=== PATIENT | female | born 1965 | race Caucasian/White ===

== ENCOUNTER → 2016-05-01 | Outpatient (CLI) | payer BC ==
[~2016-05-01] MED LIST: ACET-749 PO; ALPR1TAB3 PO; ANAS1TAB19 PO; ESOM20CA PO; GLC/500 PO; NAPR220T40 PO; PARO20TA4 PO; citrical PO; vitamin c PO
--- NOTE | 2016-05-01 10:39 | DIAGNOSTIC IMAGING REPORT ---
LEFT HAND 3 VIEWS CLINICAL HISTORY: Left hand pain. Positive JYOTSNA. FINDINGS: 3 views of left hand are compared to study dated 10/27/2015. The skeletal structures are well mineralized. No fracture is seen. The joint spaces of the hand are well-maintained. No erosive change is suspected. The overlying soft tissues are within normal limits. IMPRESSION: Unremarkable radiographic assessment of the left hand. No significant change from 10/27/2015. Electronically signed by: Mauro Temple M.D. 05/01/2016 10:37 AM Dictated Date/Time: 05/01/2016 10:37 AM
[2016-05-01 11:47] LABS: BASO % 0.5 %; BASO ABS # 0.02 K/uL (0-0.2); COMPLETE YES; EOS % 2.6 %; HEMATOCRIT 37.3 % (37-47); IG% 0.3 %; LYMPH % 39.5 %; LYMPH ABS # 1.55 K/uL (1.2-3.4); MEAN CELL VOLUME 88.2 fL (80-100); MEAN CORPUSCULAR HEMOGLOBIN 29.3 pg (25-34); MEAN CORPUSCULAR HGB CONC 33.2 g/dl (32-36); MEAN PLATELET VOLUME 9.7 fL (7.4-10.4); NEUT % 46.1 %; PLATELET COUNT 395 K/uL (130-400); RED BLOOD COUNT 4.23 M/uL (4.2-5.4); WHITE BLOOD COUNT 3.92 K/uL (4.8-10.8)
[2016-05-01 11:53] LABS: CREATININE 0.85 mg/dl (0.60-1.20)
[2016-05-01 11:54] LABS: ALT/SGPT 30 U/L (12-78)
[2016-05-01 11:56] LABS: ALKALINE PHOSPHATASE 108 U/L (45-117); AST/SGOT 27 U/L (15-37); RHEUMATOID FACTOR < 10.0 U/mL (0-15)
[2016-05-07 02:47] LABS: ALBUMIN 4.2 G/DL (3.8-4.8); ANTI-CENTROMERE AB <1.0 NEG AI (<1.0 NEG); ANTI-SS-A <1.0 NEG AI (<1.0 NEG); ANTI-SS-B <1.0 NEG AI (<1.0 NEG); CYCLIC CITRULLINATED PEPT IGG <16 UNITS (<20); DNA ds CRITHIDIA POSITIVE (NEGATIVE); GAMMA GLOBULIN 1.1 G/DL (0.8-1.7); Sm Antibody <1.0 NEG AI (<1.0 NEG); TOTAL PROTEIN 7.3 G/DL (6.2-8.3)
== END | disposition home or self-care (01) ==
LOC: C.RAD1850 10:04
PROVIDERS: ATTEND Internal Medicine Rheumatology
DX: M06.4 Inflammatory polyarthropathy (principal); R76.8 Other specified abnormal immunological findings in serum; Z79.1 Long term (current) use of non-steroidal anti-inflammatories (NSAID); Z79.899 Other long term (current) drug therapy

== ENCOUNTER 2018-10-09 10:25 | Inpatient (IN) ==
--- OUTSIDE RECORDS SUMMARY | 2018-10-09 10:29 | External Medical Summary | Continuity of Care Document ---
:1965 Author Name Keven Kathleen, Provider Address Unavailable Unavailable , Care Team Providers Name Role Phone Eloise Kathleen, [email or web address] Maile Kathleen, Provider Unavailable [email or web address] Stacey Reyes M.D. Unavailable [email or web address] Scott ALFRED, Lorri Unavailable [email or web address] CRYSTAL SALAZAR M.D., HILLARY Ochoa Unavailable Un available Unavailable Unavailable Unavailable Problems Menopausal symptoms (627.2) (N95.1) History of malignant neoplasm of breast (V10.3) (Z85.3) Status: Resolved Appendicitis (541) (K37) Gastrointestinal tract imaging abnormality (793.4) (R93.3) Acute appendicitis (540.9) (K35.80) Diarrhea (787.91) (R19.7) Appendix disease (543.9) (K38.9) Rheumatoid arthritis (714.0) (M06.9) Fatigue (780.79) (R53.83) Neck strain (847.0) (S16.1XXA) Arthralgia of multiple sites (719.49) (M25.50) Folliculitis (704.8) (L73.9) Prediabetes (790.29) (R73.03) High risk medication use (V58.69) (Z79.899) S/P mastectomy, bilateral (V45.71) (Z90.13) H/O: hysterectomy (V88.01) (Z90.710) Encounter for gynecological examination without abnormal finding (V72.31) (Z01.419) Long-term use of hydroxychloroquine (V58.69) (Z79.899) JYOTSNA positive (795.79) (R76.8) Positive double stranded DNA antibody test (795.79) (R76.8) Undifferentiated connective tissue disease (710.9) (M35.9) NSAID long-term use (V58.64) (Z79.1) Inflammatory polyarthritis (714.9) (M06.4) Granuloma annulare (695.89) (L92.0) History of abnormal Pap smear (V13.29) (Z87.898) Status: Resolved Acid reflux (530.81) (K21.9) Anxiety (300.00) (F41.9) Encounter for screening for lipoid disorders (V77.91) (Z13.2 20) Actinic keratosis (702.0) (L57.0) Allergies and Adverse Reactions Heparin (Allergy) Sulfa Drugs (Allergy) Adhesive Tape (Allergy) Fish (Allergy) Medications Cephalexin 500 MG Oral Capsule; TAKE 1 CAPSULE 3 TIMES DAILY. AUBRIE Chavez Start: 04-Jan-2018 Quantity: 15 Refills: 0 Folic Acid 1 MG Oral Tablet; take 1 tablet by mouth once sonali ly Start: 16-Nov-2016 Quantity: 90 Refills: 3 Vitamin D TABS Refills: 0 Hydroxychloroquine Sulfate 200 MG Oral Tablet; TAKE 1 TABLET TWICE DAILY. Frannie Jackson Start: 25-Nov-2015 Quantity: 180 Refills: 1 Leucovorin Calcium 5 MG Oral Tablet; TAKE 1 TABLET ONCE WEEK LY Start: 22-Sep-2016 Refills: 0 Omeprazole 20 MG Oral Tablet Delayed Release; Take 1/2 tablet daily Dar Salazar M.D. Start: 16-Nov-2016 Quantity: 28 Ralitsa Refills: 5 Meloxicam 15 MG Oral Tablet; TAKE ONE(1) TABLET BY MOUTH DAILY WITH FOOD Frannie Navas Start: 27-Oct-2015 Refills: 0 Ralitsa Paxil 20 MG Oral Tablet; TAKE 1 TABLET DAILY. Start: 12-Nov-2014 Quantity: 90 Refills: 3 ALPRAZolam 1 MG Oral Tablet; Take one half tablet daily for sleep Start: 12-Nov-2014 Refills: 0 Methotrexate Sodium (PF) 50 MG/2ML Injection Solution; Inject 0.8ML SubQ weekly Start: 22-Sep-2016 Refills: 0 Exemestane 25 MG Oral Tablet; TAKE 1 TABLET DAILY AFTER A ME AL. Start: 22-Sep-2016 Refills: 0 Procedures History of Colposcopy Status: Completed History of Oral Surgery Tooth Extraction Status: Completed History of Anal Fissurectomy Status: Com pleted 20-Feb-1984 0:00 History of Dilation And Curettage Status : Completed History of Breast Surgery Radical Mastectomy Status: Completed History of Cervical Conization Loop Electrode Status: Completed 19-Feb-1994 0:00 Excision History of Counseling for initiation of Status: Completed control method History of Salpingo-oophorectomy Bilat Laparosc Status: Completed Removal Of Both Ovaries & Tubes Immunizations Influenza On: 24-Jan-2011 17:34 Lot #: [id number], SANOFI PASTEUR Tdap (Adacel) 1 On: 08-Mar-2011 9:12 Lot #: [id number], SANOFI PASTEUR Influenza On: 21-Nov-2011 16:09 Lot #: [id number], SANOFI PASTEUR Influenza On: 25-Nov-2012 Influenza On: Nov-2013 Influenza On: 12-Nov-2014 16:13 Lot #: [id number], SANOFI PASTEUR Influenza On: 25-Nov-2016 Family History Mother Family history of Breast Cancer (V16.3) Status: Active Family history of Diabetes Mellitus (V18.0) Status: Active Family history of Hypertension (V17.49) Status: Active Family history of Hyperlipidemia Status: Active Father Family history of Atrial Fibrillation Status: Active Family history of Hyperlipidemia Status: Active Family history of Congestive Heart Failure Status: Active Family history of Diabetes Mellitus (V18.0) Status: Active Unknown Family Member Family history of Breast Cancer (V16.3) Status: Active Comments: Family History Social History - Smoking Status Never smoker Plan of Treatment Planned Observations Planned Goals not documented Results No Known Results Results not documented Encounters Appointment; Lorri Chavez PA-C 04-Jan-2018 15:00 Encounter Diagnosis: Problem not documented Appointment; Lorir Chavez PA-C 27-Dec-2017 15:30 Encounter Diagnosis: Problem not documented Appointment; Hugo Fofana DO 20-Jul-2017 9:30 Encounter Diagnosis: Problem not documented Appointment; Hillary Navas M.D. 14:40 Encounter Diagnosis: Problem not documented Appointment; Hillary Navas, M.D. 8 10:20 Encounter Diagnosis: Problem not documented Appointment; Hillary Navas M.D. 7 10:40 Encounter Diagnosis: Problem not documented
[2018-10-09] MEDS ORDERED: SODIUM CHLORIDE 0.9% 1000ML 2,000 ML IV ONE (10:54)
[2018-10-09] MEDS ORDERED: ACETAMINOPHEN 1,000 MG/100 ML VIAL IV STA (10:57)
[2018-10-09] MEDS ORDERED: ONDANSETRON INJ 2 MG/ML 2 ML VIAL IV STA (10:57)
[2018-10-09 11:21] LABS: Basophils # (auto) 0.02 K/uL (0-0.2); Basophils % (auto) 0.2 %; Eosinophils # (auto) 0.06 K/uL (0-0.5); Eosinophils % (auto) 0.5 %; Hematocrit (blood only) 38.5 % (37-47); Hemoglobin 12.9 g/dL (12.0-16.0); Immature Granulocytes # (auto) 0.03 K/uL (0.00-0.02); Immature Granulocytes % (auto) 0.3 %; Lymphocytes # (auto) 0.91 K/uL (1.2-3.4); Lymphocytes % (auto) 7.7 %; Mean Corpuscular Hemoglobin 30.4 pg (25-34); Mean Corpuscular Hgb Conc 33.5 g/dL (32-36); Mean Corpuscular Volume 90.8 fL (80-100); Mean Platelet Volume 9.7 fL (7.4-10.4); Monocytes % (auto) 5.9 %; Neutrophils # (auto) 10.07 K/uL (1.4-6.5); Neutrophils % (auto) 85.4 %; Platelet Count 316 K/uL (130-400); RDW Coefficient of Variation 17.3 % (11.5-14.5); RDW Standard Deviation 57.1 fL (36.4-46.3); Red Blood Count 4.24 M/uL (4.2-5.4); White Blood Count 11.79 K/uL (4.8-10.8)
[2018-10-09 11:30] LABS: Albumin Level 3.7 gm/dl (3.4-5.0); Calcium 9.5 mg/dl (8.5-10.1); Creatinine Clr Calc Pharmacy 71.3 ml/min; Est GFR (African American) 76.9; Est GFR (Non-African American) 66.3; Potassium 4.1 mmol/L (3.5-5.1)
[2018-10-09 11:33] LABS: Albumin Globulin Ratio 0.9 (0.9-2); Bilirubin,Total 0.9 mg/dl (0.2-1); Globulin 4.1 gm/dl (2.5-4.0); Total Protein 7.8 gm/dl (6.4-8.2)
[2018-10-09] MEDS ORDERED: IOVERSOL 100ml IV PRN (11:47)
--- NOTE | 2018-10-09 12:10 | CT Scan Report ---
ABDOMEN AND PELVIS CT WITH IV CONTRAST CT DOSE: 730.94 mGy.cm HISTORY: Acute right lower quadrant abdominal pain right lower quadrant pain TECHNIQUE: Multiaxial CT images of the abdomen and pelvis were performed following the use of intrave nous contrast. A dose lowering technique was utilized adhering to the principles of ALARA. COMPARISON STUDY: CT abdomen and pelvis 07/18/2017 FINDINGS: There is mild dependent subsegmental bibasilar atelectasis. Additional patchy groundglass opacities o f the left greater than right lung bases are noted. No pneumatosis or pneumoperitoneum. The imaged in ferior cardiac chambers appear unremarkable. The spleen, pancreas, adrenal glands, gallbladder and li moises appear unremarkable. Patency of the hepatic and portal veins. Kidneys, and ureters appear unremar kable. Partial distention the bladder with mild wall thickening. Retroflexed uterus appears to be uni cornuate in morphology. No adnexal mass lesions. Retroaortic left renal vein. No adenopathy by CT siz e criteria. Wall thickening of the distal esophagus with moderate hiatal hernia. No bowel obstruction. Terminal i leum is unremarkable. There is circumferential wall thickening with dilation of the appendix measurin g up to 11 mm transversely. Mucosal hyperemia is noted with mild periappendiceal inflammatory strandi ng. No evidence of perforation or drainable fluid collection. Tiny fat filled periumbilical hernia, 1 .4 cm. Bilateral breast implants are partially imaged. Severe L5-S1 facet arthrosis. Bones appear to be intact. IMPRESSION: 1. Dilated appendix demonstrates circumferential wall thickening and mucosal hyperemia with mild lindsay appendiceal inflammatory stranding. These findings are [facility] Please note however that on study from 07/18/2017 the appendix appeared simil norbert. 2. No evidence of perforation or drainable fluid collection. 3. No bowel obstruction. 4. Moderate hiatal hernia. 5. Tiny fat filled periumbilical hernia. 6. Additional findings as above. Electronically signed by: Tyrese Bourgeois M.D. 10/09/2018 12:08 PM
[2018-10-09] MEDS ORDERED: cefOXitin 2,000 MG/60 ML BAG IV STA (12:30)
[2018-10-09 12:52] LABS: Appearance Urine Clear (Clear); Bacteria Urine Automated Negative (Negative); Bilirubin Urine Negative (Negative); Blood Urine Negative (Negative); Color Urine Yellow; Glucose Urine UA Negative (Negative); Ketones Urine Negative (Negative); Leukocyte Esterase Urine 1+ (Negative); Nitrite Urine Negative (Negative); Protein Urine Negative (Negative); RBC Urine Automated 0-4 /hpf (0-4); Specific Gravity Urine 1.022 (1.000-1.030); Urobilinogen Urine Negative (Negative); pH Urine 7.5 (4.5-7.5)
--- NOTE | 2018-10-09 13:20 | Surgery Consultation ---
Date of Consultation October 09, 2018 Assessment & Plan (1) Acute appendicitis: This is a 53y F who presents with CT findings and physical exam concerning for acute appendicitis. Although patient's CT scan showed similar appendiceal findings in 06/2017, the patient now exhibits tenderness in the RLQ and overall feeling unwell. We will plan to take the patient to the OR today. Continue pre- op abx, NPO, and IVF. Patient is aware that this surgical procedure may delay her implant removal next week and is planning to call her surgeon from [facility] to inform them of this. We will admit her in observation overnight for ongoing monitoring. Dr Parekh- saw pt in ER Feel best to proceed with laparoscopic appendectomy possible open operation History of Present Illness Reason for Consultation: right lower quadrant abdominal pain concerning for appendicitis History of Present Illness This is a 53yF with a PMH of breast cancer dx in 2011 who presents to the [facility] ED on 10/09/18 with complaints of right sided abdominal pain. The patient states she developed abdominal gas pains and diarrhea on Sunday that progressed to right lower quadrant pain on Sunday and Sunday. Today she woke up with whole body achiness, low grade fever, chills, and overall feeling unwell. A CT scan was performed revealing a dilated appendix with wall thickening and some periappendiceal inflammatory stranding. Interestingly, she had a CT scan last year for an elective surgery where incidentally similar findings of appendicitis where found. She was called to the ER for these findings and since she was asymptomatic patient was sent home and completed a course of abx. Currently the patient denies nausea/vomiting and shortness of breath. The patient also states that she is scheduled for bilateral breast implant removal next week with [facility]. Allergies Allergy/AdvReac Type Severity Reaction Status Date / Time adhesive Allergy Intermediate RED PUFFY Verified 10/09/18 11:11 SKIN fentanyl Allergy Intermediate "FELT Verified 10/09/18 11:11 FUNNY IN THE HEAD"-RASH AFTER FENTANYL AND VERSED midazolam Allergy Intermediate RASH AFTER Verified 10/09/18 11:11 FENTANYL AND VERSED Sulfa (Sulfonamide Allergy Intermediate HIVES Verified 10/09/18 11:11 Antibiotics) heparin Allergy Mild HIVES Verified 10/09/18 11:11 salmon oil Allergy Mild HIVES/ Verified 10/09/18 11:11 VOMITING Home Medications Home Medications Medication Instructions Recorded Confirmed Type paroxetine HCl [Paxil] 20 mg PO DAILY #0 tab 06/09/14 10/09/18 History alprazolam 0.5 mg PO HS PRN #0 tab 07/18/17 10/09/18 History cholecalciferol (vitamin D3) 1,000 unit PO DAILY 90 Days #0 tab 07/18/17 10/09/18 History exemestane [Aromasin] 25 mg PO DAILY #0 tab 07/18/17 10/09/18 History folic acid 1 mg PO DAILY #0 tab 07/18/17 10/09/18 History hydroxychloroquine 200 mg PO BID #0 tab 07/18/17 10/09/18 History leucovorin calcium 5 mg PO WK #0 tab 07/18/17 10/09/18 History meloxicam 15 mg PO DAILY #0 07/18/17 10/09/18 History methotrexate sodium 20 mg IM WK #0 07/18/17 10/09/18 History omeprazole magnesium [Prilosec OTC] 20 mg PO HS #0 cap 07/18/17 10/09/18 History cyanocobalamin (vitamin B-12) 1,000 mcg IM MONTHLY 10/09/18 10/09/18 History Patient History Medical History Appendicitis Breast cancer Social History Feels Safe at Home: Yes Smoking Status: Never smoker Review of Systems Constitutional: + fever (low grade 99F), + chills and + body aches Gastrointestinal: + abdominal pain (right lower quadrant) and + diarrhea/loose stools; no nausea and no vomiting Physical Exam Constitutional: well developed, well nourished, + ill appearing and cooperative; no acute distress Respiratory: normal respiratory effort Cardiovascular: Rate/Rhythm: regular rate and regular rhythm Gastrointestinal (Abdomen): Percussion/Palpation: + abdomen tender (to palpation of the right lower quadrant) and abdomen soft Results & Data Vital Signs (Past 12 Hours) Vital Signs Temp Pulse Pulse Resp BP BP Pulse Ox 10/09/18 12:30 95 H 18 123/82 96 10/09/18 11:14 95 H 17 126/95 93 10/09/18 10:31 37.5 C 124 H 20 126/87 [address] WITH IV CONTRAST CT DOSE: 730.94 mGy.cm HISTORY: Acute right lower quadrant abdominal pain right lower quadrant pain TECHNIQUE: Multiaxial CT images of the abdomen and pelvis were performed following the use of intravenous contrast. A dose lowering technique was utilized adhering to the principles of ALARA. COMPARISON STUDY: CT abdomen and pelvis 07/18/2017 FINDINGS: There is mild dependent subsegmental bibasilar atelectasis. Additional patchy groundglass opacities of the left greater than right lung bases are noted. No pneumatosis or pneumoperitoneum. The imaged inferior cardiac chambers appear unremarkable. The spleen, pancreas, adrenal glands, gallbladder and liver appear unremarkable. Patency of the hepatic and portal veins. Kidneys, and ureters appear unremarkable. Partial distention the bladder with mild wall thickening. 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 No adnexal mass lesions. Retroaortic left renal vein. No adenopathy by CT size criteria. Wall thickening of the distal esophagus with moderate hiatal hernia. No bowel obstruction. Terminal ileum is unremarkable. There is circumferential wall thickening with dilation of the appendix measuring up to 11 mm transversely. Mucosal hyperemia is noted with mild periappendiceal inflammatory stranding. No evidence of perforation or drainable fluid collection. Tiny fat filled periumbilical hernia, 1.4 cm. Bilateral breast implants are partially imaged. Severe L5-S1 facet arthrosis. Bones appear to be intact. IMPRESSION: 1. Dilated appendix demonstrates circumferential wall thickening and mucosal hyperemia with mild periappendiceal inflammatory stranding. These findings are suspicious for acute appendicitis in the appropriate clinical setting. Please note however that on study from 07/18/2017 the appendix appeared similarly. 2. No evidence of perforation or drainable fluid collection. 3. No bowel obstruction. 4. Moderate hiatal hernia. 5. Tiny fat filled periumbilical hernia. 6. Additional findings as above. Electronically signed by: Tyrese Bourgeois M.D. 10/09/2018 12:08 PM PG Care Time/CCT Total # of Minutes Spent Total Time Spent with Patient: Total time spent is greater than 50% in coordination of care (as documented) at patient's floor/unit and/or counseling patient:
[2018-10-09] MEDS ORDERED: BUPIVACAINE 0.5 % 5 MG/1 ML MPF 30ML VIAL ONE (13:30)
[2018-10-09] MEDS ORDERED: PROPOFOL IV EMULSION 10 MG/ML 20 ML VIAL IV ONE (13:31)
[2018-10-09] MEDS ORDERED: LIDOCAINE HCL 2% 2 ML VIAL/AMP(20MG/ML) INFIL ONE (13:31)
[2018-10-09] MEDS ORDERED: GLYCOPYRROLATE 0.2 MG/ML VIAL ONE ×2 (13:31→14:55)
[2018-10-09] MEDS ORDERED: LARYING-O-JET KIT (LTA) ONE (13:31)
[2018-10-09] MEDS ORDERED: ONDANSETRON INJ 2 MG/ML 2 ML VIAL ONE (13:31)
[2018-10-09] MEDS ORDERED: SODIUM CHLORIDE 0.9% INJ 10 ML VIAL ONE (13:31)
[2018-10-09] MEDS ORDERED: DEXAMETHASONE SOD INJ 4 MG/ML VIAL ONE (13:31)
[2018-10-09] MEDS ORDERED: NEOSTIGMINE METHYLSULFATE 5 MG/5 ML SYR ONE (13:31)
[2018-10-09] MEDS ORDERED: HYDROmorphone INJ 2 MG/ML SYR/VIAL ONE (13:32)
[2018-10-09] MEDS ORDERED: ONDANSETRON INJ 2 MG/ML 2 ML VIAL IV PRN ×2 (14:03→16:57)
[2018-10-09] MEDS ORDERED: PROMETHAZINE HCL 6.25 MG in SODIUM CHLORIDE 0.9% 50 ML IV PRN (14:03)
[2018-10-09] MEDS ORDERED: ATROPINE SULFATE 0.1 MG/ML 10ML SYR IV PRN (14:03)
[2018-10-09] MEDS ORDERED: ePHEDrine sulfate 50 MG/ML AMP IV PRN (14:03)
[2018-10-09] MEDS ORDERED: fentaNYL citrate 100 MCG/2 ML VIAL IV PRN (14:03)
[2018-10-09] MEDS ORDERED: HYDROmorphone INJ 2 MG/ML SYR/VIAL IV PRN (14:03)
--- NOTE | 2018-10-09 14:03 | Anesthesiology Consultation ---
Date of Service October 09, 2018 Breast Cancer Rheumatoid Arthritis Assessment & Plan (1) Encounter for pre-operative examination: Chart Review Chart Review: Acceptable Risk for Surgery and Patient NOT seen in Pre Admission Testing Consults Requested none ASA [id number] Proposed Anesthesia Anesthesia Type: General Risk / Benefits Reviewed With: PT / POA / Parent / Guardian, Accepts Plan and Informed Consent Obtained History Surgery Operation Date: 10/09/18 07:30 Proposed Procedures p Laparoscopic Appendectomy - Alex Parekh MD, FACS Height/Weight Height: 5 ft 4 in Weight: 86 kg Allergies Allergy/AdvReac Type Severity Reaction Status Date / Time adhesive Allergy Intermediate RED PUFFY Verified 10/09/18 11:11 SKIN fentanyl Allergy Intermediate "FELT Verified 10/09/18 11:11 FUNNY IN THE HEAD"-RASH AFTER FENTANYL AND VERSED midazolam Allergy Intermediate RASH AFTER Verified 10/09/18 11:11 FENTANYL AND VERSED Sulfa (Sulfonamide Allergy Intermediate HIVES Verified 10/09/18 11:11 Antibiotics) heparin Allergy Mild HIVES Verified 10/09/18 11:11 salmon oil Allergy Mild HIVES/ Verified 10/09/18 11:11 VOMITING Medications Home Medications Medication Instructions Recorded Confirmed Last Taken paroxetine HCl [Paxil] 20 mg PO DAILY #0 tab 06/09/14 10/09/18 10/09/18 alprazolam 0.5 mg PO HS PRN #0 tab 07/18/17 10/09/18 Unknown cholecalciferol (vitamin D3) 1,000 unit PO DAILY 90 Days #0 tab 07/18/17 10/09/18 10/08/18 exemestane [Aromasin] 25 mg PO DAILY #0 tab 07/18/17 10/09/18 10/08/18 folic acid 1 mg PO DAILY #0 tab 07/18/17 10/09/18 10/08/18 hydroxychloroquine 200 mg PO BID #0 tab 07/18/17 10/09/18 10/09/18 leucovorin calcium 5 mg PO WK #0 tab 07/18/17 10/09/18 10/09/18 meloxicam 15 mg PO DAILY #0 07/18/17 10/09/18 10/09/18 methotrexate sodium 20 mg IM WK #0 07/18/17 10/09/18 10/09/18 omeprazole magnesium [Prilosec OTC] 20 mg PO HS #0 cap 07/18/17 10/09/18 10/08/18 cyanocobalamin (vitamin B-12) 1,000 mcg IM MONTHLY 10/09/18 10/09/18 Unknown Active Medications Generic Name Dose Route Start Last Admin Trade Name Freq PRN Reason Stop Dose Admin Ioversol 95 ml 10/09/18 11:47 10/09/18 11:47 Optiray 320 100ml IV 10/13/18 11:46 95 ml ONCE PRN Administration Interaction Checking NPO Date Last Intake of Fluids: 10/09/18 Time Last Intake of Fluids: 08:30 Date Last Intake of Solids: 10/09/18 Time Last Intake of Solids: 08:30 Past Medical History Medical History Appendicitis Breast cancer Exercise / Class Metabolic Activity II 4-5 Yardwork/Stairs/Walk up hill Past Anesthesia History No Hx of Anesthesia Complications and No Family Hx of Anesthesia Complications History of PONV No Hx of PONV and No Hx of Motion Sickness Social History Smoking Status: Never smoker Physical Exam Vital Signs Last Vital Signs Temp 37 C 10/09/18 13:51 Pulse 89 10/09/18 13:51 Resp 18 10/09/18 13:51 BP 141/97 H 10/09/18 13:51 Pulse Ox 97 10/09/18 13:51 ENMT Mouth: no dentition abnormality Thyromental Distance: > or= 3.5 Finger Breadths Mallampati Class: II Neck normal visual inspection Respiratory normal respiratory effort Auscultation: lungs clear to auscultation bilaterally Cardiovascular Rate/Rhythm: regular rate and regular rhythm Psychiatric Orientation: alert Testing Laboratory Results 10/09/18 10:50 10/09/18 10:50 Urine Color Yellow 10/09/18 12:30 Urine Appearance Clear (Clear) 10/09/18 12:30 Urine pH 7.5 (4.5-7.5) 10/09/18 12:30 Ur Specific [place] 1.022 (1.000-1.030) 10/09/18 12:30 Urine Protein Negative (Negative) 10/09/18 12:30 Urine Glucose (UA) Negative (Negative) 10/09/18 12:30 Urine Ketones Negative (Negative) 10/09/18 12:30 Urine Nitrite Negative (Negative) 10/09/18 12:30 Ur Leukocyte Esterase 1+ (Negative) H 10/09/18 12:30 Urine WBC (Auto) 1-5 /hpf (0-5) 10/09/18 12:30 Urine RBC (Auto) 0-4 /hpf (0-4) 10/09/18 12:30 U Hyaline Cast (Auto) 1-5 /lpf (0-5) 10/09/18 12:30 U Epithel Cells (Auto) 5-10 /lpf (0-5) H 10/09/18 12:30 Urine Bacteria (Auto) Negative (Negative) 10/09/18 12:30
[2018-10-09] MEDS ORDERED: ROCURONIUM BROMIDE 10 MG/ML 5 ML VIAL ONE (14:23)
[2018-10-09] MEDS ORDERED: KETOROLAC 30 MG/ML VIAL ONE (14:23)
[2018-10-09] MEDS ORDERED: SUCCINYLCHOLINE CHLORIDE 20 MG/ML 10 ML VIAL ONE (14:23)
[2018-10-09] MEDS ORDERED: ePHEDrine sulfate 50 MG/ML SYR ONE (14:38)
--- NOTE | 2018-10-09 15:04 | Operative Report ---
Post Operative Report Pre & Post Diagnosis Operation Date: 10/09/18 07:30 Pre-Op Diagnosis: Acute Appendicitis Post-Op Diagnosis: Acute Appendicitis adhesions Procedure Operation Date: 10/09/18 07:30 Actual Procedures p Laparoscopic Appendectomy(Not Applicable) - Alex Parekh MD, FACS lysis of adhesions Surgeon Alex Parekh MD, FACS Lumber Press Operator Sara Taylor Estimated Blood Loss 10 Findings Consistent with Post-Op Diagnosis Specimens appendix Description of Procedure see dictation I attest to the content of the Intraoperative Record and any orders documented therein. Any exceptions are noted below.
[2018-10-09] MEDS ORDERED: SUGAMMADEX SODIUM 200 MG/2 ML VIAL IV ONE (15:20)
[2018-10-09] MEDS ORDERED: MEPERIDINE HCL 25 MG/ML CARP ONE (15:31)
[2018-10-09] MEDS ORDERED: MEPERIDINE HCL 25 MG/ML CARP IV PRN (15:32)
[2018-10-09] MEDS ORDERED: RACEPINEPHRINE 2.25% NEBU SOLN 0.5 ML VIAL NEB STA (15:55)
--- NOTE | 2018-10-09 16:10 | Anesthesiology Progress Note ---
Date of Service October 09, 2018 Subjective Emergence Note (Difficult to read on paper flow sheet/Anesthetic record): After patient reversed from paralytic but before surgery completed, patient was ventilating with Vt 400s, RR 14-16, nonlabored. Patient's TOF was also 4/[address] on ulnar nerve. Patient also noted to have some orbital edema, Dr. Sharma made aware and is thought to be due to 2L of NSS given in ER then patient was laid flat for surgery. No swelling elsewhere or hives noted. When surgery finished and patient more awake, RR increased to 30s, VT dropped to 200-300s. Patient already give max amount of reversal agent. Dr. Sharma made aware and came into room, Sugammadex requested. Dr. Sharma felt patient was ok to be extubated and ETT was pulled. Patient's VSS but Spo2 began to drop into low 90s. Patient did report it being difficult to breathe, RR 30s. Another [employer] sent to retrieve Sugammadex and it was given. Within 1-2 minutes, RR dropped to 16-20, Vt over 400s and patient reported "feeling better". Spo2 also up to 98%. Patient then began to shiver but awake entire time. In PACU requested Demerol order for patient comfort. Patients VSS in PACU but did occasionally have a cough that sounded stridorous. Lung sounds were clear throughout, Patient did not have any oral edema, hives or wheezing to accompany the occasional stridorous cough. Patient also denied having any pain or dyspnea. Edith made aware of all the above and ordered a Nebulizer of racemic epinephrine which was promptly given in PACU. Upon leaving patient in PACU, VSS. The patient was resting comfortably. There was no shivering, stridorous cough, dyspnea, or distress noted. Physical Exam Vital Signs: Last Vital Signs Temp 36.8 C 10/09/18 15:30 Pulse 100 H 10/09/18 15:47 Resp 26 H 10/09/18 15:47 BP 150/101 H 10/09/18 15:30 Pulse Ox 96 10/09/18 15:47 Results & Data Medications Administered Epinephrine (Raccemic Epinephrine 2.25% 0.5ml) 0.5 ml NEB NOW STA Stop: 10/09/18 15:56 Last Admin: 10/09/18 15:56 Dose: 0.5 ml Documented by: Ioversol (Optiray 320 100ml) 95 ml IV ONCE PRN PRN Reason: Interaction Checking Stop: 10/13/18 11:46 Last Admin: 10/09/18 11:47 Dose: 95 ml Documented by: [id number] Meperidine HCl (Demerol) 12.5 mg IV ONCE PRN PRN Reason: Pain Stop: 10/23/18 15:31 Last Admin: 10/09/18 15:40 Dose: 12.5 mg Documented by: [id number]
--- NOTE | 2018-10-09 16:22 | Anesthesiology Progress Note ---
Date of Service October 09, 2018 Anesthesia Post Procedure Vital Signs Vital Signs: Temp Pulse Pulse Resp BP BP Pulse Ox 10/09/18 16:10 96 H 21 124/86 93 10/09/18 16:00 99 H 17 110/59 L 91 10/09/18 15:50 105 H 25 H 151/91 H 96 10/09/18 15:47 100 H 26 H 96 10/09/18 15:40 114 H 21 152/113 H 95 10/09/18 15:30 36.8 C 112 H 25 H 150/101 H 94 10/09/18 13:51 37 C 89 18 141/97 H 97 10/09/18 13:28 86 20 143/91 H 98 10/09/18 12:30 95 H 18 123/82 96 10/09/18 11:14 95 H 17 126/95 93 10/09/18 10:31 37.5 C 124 H 20 126/87 96 Pain Intensity Abdomen: Pain Intensity: 7 Transfer of Care Handoff Completed per policy Notes Mental Status: alert / awake / arousable Patient Amnestic to Procedure: Yes Nausea / Vomiting: adequately controlled Pain: adequately controlled Airway Patency, RR, SpO2: stable & adequate BP & HR: stable & adequate Hydration State: stable & adequate Anesthetic Complications: no major complications apparent Notes: Patient did receive a tx with racemic epinephrine in pacu for stridor. She had some mild facial edema which improved with positioning HOB elevated.
--- NOTE | 2018-10-09 16:34 | Hospitalist Consultation ---
Date of Consultation October 09, 2018 Assessment & Plan (1) Appendicitis: s/p appendectomy management per Dr. Parekh (2) GERD (gastroesophageal reflux disease): continue PPI (3) Breast cancer: continue Aromasin (4) Stridor: will place on continuous pulse oximetry over night no stridor on exam at time of my consult, she had some earlier there was a question of possible aspiration after extubation will see how she is breathing in morning, consider CXR if still on oxygen History of Present Illness Reason for Consultation: Medical management Requesting Physician: Dr. Parekh Attending Physician: Alex Parekh MD, [facility] History of Present Illness 53 yo female with history of breast cancer, RA, Lupus and GERD who presents with acute onset of RLQ. She was diagnosed with acute appendicitis on CT scan. WBC was minimally elevated. BMP was normal. She underwent lap appy by Dr. Parekh as well as lysis of adhesions. No complications during surgery. Shortly after extubation she coughed a lot and had some stridor on exam. She was given a dose of racemic epinephrine which improved the stridor. In the PACU she was resting comfortably, no respiratory distress. She denied any abdominal pain, she denies chest pain and dyspnea. She admitted that her throat felt a little swollen. She says that her breast cancer was diagnosed years ago, treated with bilateral mastectomy and she also underwent bilateral oopherectomy. She still takes Aromasin. Her cancer was HER-2 positive and she was treated with Herceptin for a year, never had any cardiomyopathy. She also has a diagnosis of auto-immune disease. She says it has some characteristics of both RA and lupus. She takes Methotrexate, hydroxychloroquine and Leucovorin for this. Her symptoms are well controlled. She does not smoke. She does admit to drinking 3-4 glasses of wine every night. She has gone several days without drinking before, never had issues. Allergies Allergy/AdvReac Type Severity Reaction Status Date / Time adhesive Allergy Intermediate RED PUFFY Verified 10/09/18 11:11 SKIN fentanyl Allergy Intermediate "FELT Verified 10/09/18 11:11 FUNNY IN THE HEAD"-RASH AFTER FENTANYL AND VERSED midazolam Allergy Intermediate RASH AFTER Verified 10/09/18 11:11 FENTANYL AND VERSED Sulfa (Sulfonamide Allergy Intermediate HIVES Verified 10/09/18 11:11 Antibiotics) heparin Allergy Mild HIVES Verified 10/09/18 11:11 salmon oil Allergy Mild HIVES/ Verified 10/09/18 11:11 VOMITING Home Medications Home Medications Medication Instructions Recorded Confirmed Type paroxetine HCl [Paxil] 20 mg PO DAILY #0 tab 06/09/14 10/09/18 History alprazolam 0.5 mg PO HS PRN #0 tab 07/18/17 10/09/18 History cholecalciferol (vitamin D3) 1,000 unit PO DAILY 90 Days #0 tab 07/18/17 10/09/18 History exemestane [Aromasin] 25 mg PO DAILY #0 tab 07/18/17 10/09/18 History folic acid 1 mg PO DAILY #0 tab 07/18/17 10/09/18 History hydroxychloroquine 200 mg PO BID #0 tab 07/18/17 10/09/18 History leucovorin calcium 5 mg PO WK #0 tab 07/18/17 10/09/18 History meloxicam 15 mg PO DAILY #0 07/18/17 10/09/18 History methotrexate sodium 20 mg IM WK #0 07/18/17 10/09/18 History omeprazole magnesium [Prilosec OTC] 20 mg PO HS #0 cap 07/18/17 10/09/18 History cyanocobalamin (vitamin B-12) 1,000 mcg IM MONTHLY 10/09/18 10/09/18 History Patient History Medical History Appendicitis Breast cancer GERD (gastroesophageal reflux disease) Lupus RA (rheumatoid arthritis) Surgical History H/O bilateral oophorectomy S/P bilateral mastectomy Family History Other Hypertension Social History Preferred Language: Uzbek Communication Ability: Effective Documentum Consultant Required: No Beliefs That Will Affect Care: None Current Living Situation: Spouse and Family Other Information That Helps Us Care for You: No Feels Safe at Home: Yes Safety Concerns: Feels Safe At This Time Smoking Status: Never smoker Hx Alcohol Use: Yes Alcohol type: wine Hx Substance Use: Yes substance use type: marijuana and prescription drug Last Used Substance: Days (ago) Last Used Substance Other:: last night Review of Systems Review of Systems: All systems reviewed & are unremarkable except as noted in HPI & below Constitutional: no fever, no chills and no weakness Ear, Nose, Mouth, Throat: + sore throat and + change in voice Respiratory: no cough, no dyspnea and no dyspnea on exertion Cardiovascular: no chest pain and no edema Gastrointestinal: no abdominal pain, no nausea, no vomiting, no constipation and no diarrhea/loose stools Musculoskeletal: + joint pain (diffuse, mild) Physical Exam Constitutional: WD/WN, vitals as above Eyes: PERRL, conjunctivae normal, anicteric sclerae ENMT: external ear and nose normal, oropharynx normal Neck: trachea midline, no thyromegaly Respiratory: normal respiratory effort, lungs clear to auscultation Cardiovascular: RRR, no murmur, no edema Gastrointestinal (Abdomen): normal bowel sounds, soft, nontender, no hepatosplenomegaly Musculoskeletal: no cyanosis or clubbing, extremities motor strength 5/5 Skin: no rashes, warm and dry Neurologic: patellar DTR's 2+ bilat, sensation intact and PERRL, EOMI, accommodation nl, no face palsy, no dysarthria Psychiatric: A+Ox3, euthymic affect Lymphatic: no cervical or axillary lymphadenopathy Results & Data Vital Signs (Past 12 Hours) Vital Signs Temp Pulse Pulse Resp BP BP Pulse Ox 10/09/18 16:30 91 H 19 119/78 93 10/09/18 16:20 94 H 19 122/80 92 10/09/18 16:10 96 H 21 124/86 93 10/09/18 16:00 99 H 17 110/59 L 91 10/09/18 15:50 105 H 25 H 151/91 H 96 10/09/18 15:47 100 H 26 H 96 10/09/18 15:40 114 H 21 152/113 H 95 10/09/18 15:30 36.8 C 112 H 25 H 150/101 H 94 10/09/18 13:51 37 C 89 18 141/97 H 97 10/09/18 13:28 86 20 143/91 H 98 10/09/18 12:30 95 H 18 123/82 96 10/09/18 11:14 95 H 17 126/95 93 10/09/18 10:31 37.5 C 124 H 20 126/87 96 Laboratory Results Laboratory Results - last 24 hr 10/09/18 10/09/18 10/09/18 10:50 10:50 12:30 WBC 11.79 H RBC 4.24 Hgb 12.9 Hct 38.5 MCV 90.8 MCH 30.4 MCHC 33.5 RDW Std Deviation 57.1 H RDW Coeff of Dipti 17.3 H Plt Count 316 MPV 9.7 Immature Gran % (Auto) 0.3 Neut % (Auto) 85.4 Lymph % (Auto) 7.7 [place] % (Auto) 5.9 Eos % (Auto) 0.5 Baso % (Auto) 0.2 Immature Gran # (Auto) 0.03 H Neut # (Auto) 10.07 H Lymph # (Auto) 0.91 L [place] # (Auto) 0.70 H Eos # (Auto) 0.06 Baso # (Auto) 0.02 Sodium 140 Potassium 4.1 Chloride 106 Carbon Dioxide 30 Anion Gap 4.0 BUN 17 Creatinine 0.98 Est Cr Clr Drug Dosing 71.3 Est GFR ( Amer) 76.9 Est GFR (Non-Af Amer) 66.3 BUN/Creatinine Ratio 17.0 Glucose 116 H Calcium 9.5 Total Bilirubin 0.9 AST 22 ALT 31 Alkaline Phosphatase 115 Total Protein 7.8 Albumin 3.7 Globulin 4.1 H Albumin/Globulin Ratio 0.9 Lipase 116 Urine Color Yellow Urine Appearance Clear Urine pH 7.5 Ur Specific [place] 1.022 Urine Protein Negative Urine Glucose (UA) Negative Urine Ketones Negative Urine Blood Negative Urine Nitrite Negative Urine Bilirubin Negative Urine Urobilinogen Negative Ur Leukocyte Esterase 1+ H Urine WBC (Auto) 1-5 Urine RBC (Auto) 0-4 U Hyaline Cast (Auto) 1-5 U Epithel Cells (Auto) 5-10 H Urine Bacteria (Auto) Negative Diagnostic Findings CT ABDOMEN AND PELVIS IMPRESSION: 1. Dilated appendix demonstrates circumferential wall thickening and mucosal hyperemia with mild periappendiceal inflammatory stranding. These findings are suspicious for acute appendicitis in the appropriate clinical setting. Please note however that on study from 07/18/2017 the appendix appeared similarly. 2. No evidence of perforation or drainable fluid collection. 3. No bowel obstruction. 4. Moderate hiatal hernia. 5. Tiny fat filled periumbilical hernia. 6. Additional findings as above. Medications Administered Current Inpatient Medications Hydrocodone Bitart/Acetaminophen ([place] 5/325) 1 tab PO 3XDQ4 PRN; Protocol PRN Reason: Pain Stop: 10/23/18 16:56 Hydrocodone Bitart/Acetaminophen ([place] 5/325) 2 tab PO 3XDQ4 PRN; Protocol PRN Reason: Pain Stop: 10/23/18 16:56 Alprazolam (Xanax) 0.5 mg PO HS PRN PRN Reason: Insomnia Stop: 11/08/18 16:56 Hydromorphone HCl (Dilaudid) 0.5 mg IV Q3HWA PRN; Protocol PRN Reason: Pain Stop: 10/23/18 16:56 Hydromorphone HCl (Dilaudid) 1 mg IV Q3HWA PRN; Protocol PRN Reason: Pain Stop: 10/23/18 16:56 Sodium Chloride (Nss 1000ml) 1,000 mls @ 80 mls/hr IV .[id number] AGNES Stop: 11/08/18 16:56 Cefoxitin Sodium 1,000 mg/ (Dextrose) 60 mls @ 100 mls/hr IV Q6H AGNES Stop: 10/19/18 17:59 Last Infusion: 10/09/18 19:51 Dose: Infused Documented by: Promethazine HCl 12.5 mg/ (Sodium Chloride) 50.5 mls @ 204 mls/hr IV Q6H PRN PRN Reason: Nausea And Vomiting Stop: 11/08/18 16:56 Promethazine HCl 25 mg/ Sodium (Chloride) 51 mls @ 204 mls/hr IV Q6H PRN PRN Reason: Nausea And Vomiting Stop: 11/08/18 16:56 Ibuprofen (Motrin) 600 mg PO Q6H PRN PRN Reason: Pain Stop: 11/08/18 16:56 Meperidine HCl (Demerol) 12.5 mg IV ONCE PRN PRN Reason: Pain Stop: 10/23/18 15:31 Last Admin: 10/09/18 15:40 Dose: 12.5 mg Documented by: Ondansetron HCl (Zofran) 4 mg IV 4XDQ4H PRN PRN Reason: Nausea Stop: 11/08/18 16:56 Paroxetine HCl (Paxil) 20 mg PO DAILY AGNES Stop: 11/09/18 08:59 PG Care Time/CCT Total # of Minutes Spent Total Time Spent with Patient: Total time spent is greater than 50% in installation coordinator rdination of care (as documented) at patient's floor/unit and/or counseling patient: (1) Appendicitis Appendicitis type: unspecified Qualified Code(s): K37 - Unspecified appendicitis
[2018-10-09] MEDS ORDERED: PROMETHAZINE HCL 12.5 MG in SODIUM CHLORIDE 0.9% 50 ML IV PRN (16:57)
[2018-10-09] MEDS ORDERED: HYDROmorphone INJ 1 MG/ML SYRINGE IV PRN (16:57)
[2018-10-09] MEDS ORDERED: HYDROCODONE/ACETAMOPHEN 5/325MG TAB PO PRN ×2 (16:57)
[2018-10-09] MEDS ORDERED: IBUPROFEN 600 MG TAB PO PRN (16:57)
[2018-10-09] MEDS ORDERED: PROMETHAZINE HCL 25 MG in SODIUM CHLORIDE 0.9% 50 ML IV PRN (16:57)
--- NOTE | 2018-10-09 19:18 | Emergency Department Note ---
Entered by Jamaica Rondon acting as a scribe for Librado Amador MD History of Present Illness General Chief complaint: Abdominal Pain Stated complaint: RIGHT ABD PAIN,CHILLS & ACHES Time Seen by Provider: 10/09/18 10:54 Source: patient History of Present Illness Provider complaint: abdominal pain Onset (ago): day(s) 1 Location: abdomen Severity: similar to prior episodes (diagnosed with appendicitis 1 year ago) Pain Consistency: + other (episode) Maximum Pain Intensity: 8 Associated symptoms: + denies other symptoms (decreased appetite, urinary symptoms), + diaphoresis, + fever/chills and + other (full body aches) The patient is a 53 year old female who presents to the ED with complaints of an episode of abdominal pain that began 1 day ago. The patient states that she had similar pain 1 year ago when she was diagnosed with appendicitis here. The patient states that she did not have an appendectomy because her symptoms were not severe enough at the time. The patient states that her abdominal pain was worse yesterday, but today she has full body aches, chills and diaphoresis. The patient denies vomiting, decreased appetite, and urinary symptoms. Home Medications Home Medications Medication Instructions Recorded Confirmed Type paroxetine HCl [Paxil] 20 mg PO DAILY #0 tab 06/09/14 10/09/18 History alprazolam 0.5 mg PO HS PRN #0 tab 07/18/17 10/09/18 History cholecalciferol (vitamin D3) 1,000 unit PO DAILY 90 Days #0 tab 07/18/17 10/09/18 History exemestane [Aromasin] 25 mg PO DAILY #0 tab 07/18/17 10/09/18 History folic acid 1 mg PO DAILY #0 tab 07/18/17 10/09/18 History hydroxychloroquine 200 mg PO BID #0 tab 07/18/17 10/09/18 History leucovorin calcium 5 mg PO WK #0 tab 07/18/17 10/09/18 History meloxicam 15 mg PO DAILY #0 07/18/17 10/09/18 History methotrexate sodium 20 mg IM WK #0 07/18/17 10/09/18 History omeprazole magnesium [Prilosec OTC] 20 mg PO HS #0 cap 05/30/18 08/21/19 History cyanocobalamin (vitamin B-12) 1,000 mcg IM MONTHLY 10/09/18 10/09/18 History Allergies Allergy/AdvReac Type Severity Reaction Status Date / Time adhesive Allergy Intermediate RED PUFFY Verified 10/09/18 11:11 SKIN fentanyl Allergy Intermediate "FELT Verified 10/09/18 11:11 FUNNY IN THE HEAD"-RASH AFTER FENTANYL AND VERSED midazolam Allergy Intermediate RASH AFTER Verified 10/09/18 11:11 FENTANYL AND VERSED Sulfa (Sulfonamide Allergy Intermediate HIVES Verified 10/09/18 11:11 Antibiotics) heparin Allergy Mild HIVES Verified 10/09/18 11:11 salmon oil Allergy Mild HIVES/ Verified 10/09/18 11:11 VOMITING Past Med/Surg History Medical History Appendicitis Breast cancer Social History Preferred Language: Sami Communication Ability: Effective Neonatal Intensive Care Unit Nurse Required: No Beliefs That Will Affect Care: None Current Living Situation: Spouse and Family Other Information That Helps Us Care for You: No Feels Safe at Home: Yes Safety Concerns: Feels Safe At This Time Smoking Status: Never smoker Hx Alcohol Use: Yes Alcohol type: wine Hx Substance Use: Yes substance use type: marijuana and prescription drug Last Used Substance: Days (ago) Last Used Substance Other:: last night Review of Systems See HPI for pertinent positives & negatives. and A total of 10 systems reviewed and were otherwise negative Physical Exam Vital Signs Vital Signs - 24 hr 10/09/18 10:31 10/09/18 11:14 10/09/18 12:30 Temperature 37.5 C Temperature Source Oral Sepsis Recent Fever Within 48 Hours No Sepsis Action Taken by Nursing No Action Required Pulse Rate 124 H 95 H Pulse Rate [Apical] 95 H Pulse Rhythm Regular Pulse Rhythm [Apical] Pulse Strength [Apical] Respiratory Rate 20 17 18 Respiratory Effort / Characteristics Non-Labored Respiratory Depth Normal Respiratory Pattern Regular Blood Pressure 126/87 Blood Pressure [Right Arm] 126/95 123/82 Blood Pressure Mean 100 Blood Pressure Mean [Right Arm] 105 95 Blood Pressure Position Sitting Blood Pressure Position [Right Arm] Pulse Oximetry 96 93 96 Oxygen Delivery Method Room Air Room Air Room Air 10/09/18 13:28 10/09/18 13:51 Temperature 37 C Temperature Source Oral Sepsis Recent Fever Within 48 Hours Sepsis Action Taken by Nursing Pulse Rate Pulse Rate [Apical] 86 89 Pulse Rhythm Pulse Rhythm [Apical] Regular Pulse Strength [Apical] Normal Respiratory Rate 20 18 Respiratory Effort / Characteristics Non-Labored Spontaneous Respiratory Depth Normal Respiratory Pattern Regular Blood Pressure Blood Pressure [Right Arm] 143/91 H 141/97 H Blood Pressure Mean Blood Pressure Mean [Right Arm] 108 111 Blood Pressure Position Blood Pressure Position [Right Arm] Lying Pulse Oximetry 98 97 Oxygen Delivery Method Room Air Room Air GENERAL: Awake, alert, uncomfortable-appearing, in no distress HENT: Normocephalic, atraumatic. Oropharynx unremarkable. Mucous membranes dry. EYES: Normal conjunctiva. Sclera non-icteric. NECK: Supple. No nuchal rigidity. FROM. No JVD. RESPIRATORY: Clear to auscultation bilaterally. CARDIAC: Regular rate, normal rhythm. Extremities warm and well perfused. Pulses equal. ABDOMEN: Mild RLQ tenderness. Soft, non-distended. No rebound or guarding. No masses. RECTAL: Deferred. MUSCULOSKELETAL: Chest examination reveals no tenderness. The back is symmetrical on inspection without obvious abnormality. There is no CVA tenderness to palpation. No joint edema. LOWER EXTREMITIES: Calves are equal size bilaterally and non-tender. No edema. No discoloration. NEURO: Normal sensorium. No sensory or motor deficits noted. SKIN: No rash or jaundice noted. Course 1054: Past medical records reviewed. The patient was evaluated in room C6. A complete history and physical exam was performed. 1236: I discussed the tom's case with General Surgery. Larry Beltran PA-C will be coming to see the patient. 1245: I updated the patient on the test results. I informed the patient that she will be evaluated by general surgery shortly. 1518: I discussed the patient's case with Dr. Parekh- General Surgery. He will evaluate the patient for further management. Consultations Consultation #1: I discussed the tom's case with General Surgery. Larry Beltran PA-C will be coming to see the patient. Time: 12:36 Consultation #2: I discussed the patient's case with Dr. Parekh- General Surgery. He will evaluate the patient for further management. Time: 15:18 Administered Medications Cefoxitin Sodium 1,000 mg/ (Dextrose) 60 mls @ 100 mls/hr IV Q6H AGNES Stop: 10/19/18 17:59 Last Admin: 10/09/18 18:48 Dose: 100 mls/hr Documented by: [id number] Meperidine HCl (Demerol) 12.5 mg IV ONCE PRN PRN Reason: Pain Stop: 10/23/18 15:31 Last Admin: 10/09/18 15:40 Dose: 12.5 mg Documented by: [id number] Discontinued Medications Bupivacaine HCl (Marcaine 0.5% Mpf) Confirm Administered Dose 30 ml .ROUTE .STK- MED ONE Stop: 10/09/18 13:31 Last Admin: 10/09/18 14:58 Dose: 5 ml Documented by: [id number] Epinephrine (Raccemic Epinephrine 2.25% 0.5ml) 0.5 ml NEB NOW STA Stop: 10/09/18 15:56 Last Admin: 10/09/18 15:56 Dose: 0.5 ml Documented by: [id number] Acetaminophen (Ofirmev) 1,000 mg in 100 mls @ 400 mls/hr IV NOW STA Stop: 10/09/18 11:11 Last Infusion: 10/09/18 11:28 Dose: 0 mls/hr Documented by: [id number] Admin: 10/09/18 11:09 Dose: 400 mls/hr Documented by: [id number] Sodium Chloride (Nss 1000ml) 2,000 mls @ 999 mls/hr IV .Q2H1M ONE Stop: 10/09/18 12:54 Last Infusion: 10/09/18 17:20 Dose: 0 mls/hr Documented by: [id number] Admin: 10/09/18 11:09 Dose: 999 mls/hr Documented by: [id number] Cefoxitin Sodium (Mefoxin) 2,000 mg in 60 mls @ 100 mls/hr IV NOW STA Stop: 10/09/18 13:05 Last Infusion: 10/09/18 13:38 Dose: 0 mls/hr Documented by: [id number] Admin: 10/09/18 12:59 Dose: 100 mls/hr Documented by: [id number] Ioversol (Optiray 320 100ml) 95 ml IV ONCE PRN PRN Reason: Interaction Checking Stop: 10/13/18 11:46 Last Admin: 10/09/18 11:47 Dose: 95 ml Documented by: [id number] Meperidine HCl (Demerol) Confirm Administered Dose 25 mg .ROUTE .STK-MED ONE Stop: 10/09/18 15:32 Last Admin: 10/09/18 17:44 Dose: Not Given Documented by: [id number] Ondansetron HCl (Zofran) 4 mg IV NOW STA Stop: 10/09/18 10:58 Last Admin: 10/09/18 11:09 Dose: 4 mg Documented by: [id number] Medical Decision Making Differential Diagnosis Differential diagnosis: Etiologies such as biliary colic, cholecystitis, hepatitis, perihepatitis, pancreatitis, cardiac disease, pancreatitis, gastritis, peptic ulcer disease, appendicitis, ovarian cyst, ovarian torsion, ectopic , pelvic inflammatory disease, cystitis, diverticulitis, mesenteric ischemia, inflammatory bowel disease, ileus, bowel obstruction, aortic pathology, shingles, as well as others were considered. Medical Records Attestation: I reviewed the patient's medical records. Home Medications Current Medication List: was personally reviewed by me Laboratory Data Attestation: I reviewed the patient's lab results. Result diagrams: 10/09/18 10:50 10/09/18 10:50 Lab Results 10/09/18 10/09/18 10/09/18 Range/Units 10:50 10:50 12:30 WBC 11.79 H (4.8-10.8) K/uL RBC 4.24 (4.2-5.4) M/uL Hgb 12.9 (12.0-16.0) g/dL Hct 38.5 (37-47) % MCV 90.8 (80-100) fL MCH 30.4 (25-34) pg MCHC 33.5 (32-36) g/dL RDW Std Deviation 57.1 H (36.4-46.3) fL RDW Coeff of Dipti 17.3 H (11.5-14.5) % Plt Count 316 (130-400) K/uL MPV 9.7 (7.4-10.4) fL Immature Gran % (Auto) 0.3 % Neut % (Auto) 85.4 % Lymph % (Auto) 7.7 % [place] % (Auto) 5.9 % Eos % (Auto) 0.5 % Baso % (Auto) 0.2 % Immature Gran # (Auto) 0.03 H (0.00-0.02) K/uL Neut # (Auto) 10.07 H (1.4-6.5) K/uL Lymph # (Auto) 0.91 L (1.2-3.4) K/uL [place] # (Auto) 0.70 H (0.11-0.59) K/uL Eos # (Auto) 0.06 (0-0.5) K/uL Baso # (Auto) 0.02 (0-0.2) K/uL Sodium 140 (136-145) mmol/L Potassium 4.1 (3.5-5.1) mmol/L Chloride 106 (98-107) mmol/L Carbon Dioxide 30 (21-32) mmol/L Anion Gap 4.0 (3-11) BUN 17 (7-18) mg/dl Creatinine 0.98 (0.6-1.2) mg/dl Est Cr Clr Drug Dosing 71.3 ml/min Est GFR ( Amer) 76.9 Est GFR (Non-Af Amer) 66.3 BUN/Creatinine Ratio 17.0 (10-20) Glucose 116 H (70-99) mg/dl Calcium 9.5 (8.5-10.1) mg/dl Total Bilirubin 0.9 (0.2-1) mg/dl AST 22 (15-37) U/L ALT 31 (12-78) U/L Alkaline Phosphatase 115 (45-117) U/L Total Protein 7.8 (6.4-8.2) gm/dl Albumin 3.7 (3.4-5.0) gm/dl Globulin 4.1 H (2.5-4.0) gm/dl Albumin/Globulin Ratio 0.9 (0.9-2) Lipase 116 (73-393) U/L Urine Color Yellow Urine Appearance Clear (Clear) Urine pH 7.5 (4.5-7.5) Ur Specific [place] 1.022 (1.000-1.030) Urine Protein Negative (Negative) Urine Glucose (UA) Negative (Negative) Urine Ketones Negative (Negative) Urine Blood Negative (Negative) Urine Nitrite Negative (Negative) Urine Bilirubin Negative (Negative) Urine Urobilinogen Negative (Negative) Ur Leukocyte Esterase 1+ H (Negative) Urine WBC (Auto) 1-5 (0-5) /hpf Urine RBC (Auto) 0-4 (0-4) /hpf U Hyaline Cast (Auto) 1-5 (0-5) /lpf U Epithel Cells (Auto) 5-10 H (0-5) /lpf Urine Bacteria (Auto) Negative (Negative) Imaging Data Radiologist's Impression: Radiology results as stated below per my review and the radiologist's interpretation: ABDOMEN AND PELVIS CT WITH IV CONTRAST CT DOSE: 730.94 mGy.cm HISTORY: Acute right lower quadrant abdominal pain right lower quadrant pain TECHNIQUE: Multiaxial CT images of the abdomen and pelvis were performed following the use of intravenous contrast. A dose lowering technique was utilized adhering to the principles of ALARA. COMPARISON STUDY: CT abdomen and pelvis 07/18/2017 FINDINGS: There is mild dependent subsegmental bibasilar atelectasis. Additional patchy groundglass opacities of the left greater than right lung bases are noted. No pneumatosis or pneumoperitoneum. The imaged inferior cardiac chambers appear unremarkable. The spleen, pancreas, adrenal glands, gallbladder and liver appear unremarkable. Patency of the hepatic and portal veins. Kidneys, and ureters appear unremarkable. Partial distention the bladder with mild wall thickening. 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 No adnexal mass lesions. Retroaortic left renal vein. No adenopathy by CT size criteria. Wall thickening of the distal esophagus with moderate hiatal hernia. No bowel obstruction. Terminal ileum is unremarkable. There is circumferential wall thickening with dilation of the appendix measuring up to 11 mm transversely. Mucosal hyperemia is noted with mild periappendiceal inflammatory stranding. No evidence of perforation or drainable fluid collection. Tiny fat filled periumbilical hernia, 1.4 cm. Bilateral breast implants are partially imaged. Severe L5-S1 facet arthrosis. Bones appear to be intact. IMPRESSION: 1. Dilated appendix demonstrates circumferential wall thickening and mucosal hyperemia with mild periappendiceal inflammatory stranding. These findings are suspicious for acute appendicitis in the appropriate clinical setting. Please note however that on study from 07/18/2017 the appendix appeared similarly. 2. No evidence of perforation or drainable fluid collection. 3. No bowel obstruction. 4. Moderate hiatal hernia. 5. Tiny fat filled periumbilical hernia. 6. Additional findings as above. Electronically signed by: Tyrese Bourgeois M.D. 10/09/2018 12:08 PM Blood Pressure Blood Pressure Findings: Normal blood pressure Blood Pressure Disposition: did not require urgent referral MDM Narrative The patient is a pleasant 53-year-old woman with a past medical history of breast cancer who presents emergency department with nausea and lower abdominal pain with diarrhea over the past couple of days per hpi. On arrival patient is uncomfortable but no acute distress, afebrile with heart rate in the 120s but vital signs otherwise stable. Patient appears clinically dry. On exam the patient has mild right lower quadrant tenderness without guarding or rebound. WBC 11.7, nonspecific. H/H and platelets within normal limits. Chemistry without acidosis. Electrolytes and LFTs unremarkable. CT abdomen pelvis demonstrates dilated appendix with circumferential wall thickening and close hyperemia with periappendiceal inflammation that is suspicious for appendicitis. Of note however similar findings were observed on the patient's CT from 07/18/2017 which was incidental at that time. Patient was ordered for cefoxitin. Case was discussed with general surgery PACs with Larry Whyte, working with Dr. Parekh who evaluated the patient at the bedside and admitted the patient for surgery. Impression & Plan Appendicitis, Leukocytosis Discharge Plan Visit Data Chief Complaint: Abdominal Pain Stated Complaint: RIGHT ABD PAIN,CHILLS & ACHES ED Provider: Librado Amador Discharge Problem: Appendicitis, Leukocytosis Patient Disposition: Being Evaluated by Surgeon Discharge Instructions Interventions: ED Discharge Assessment Last Done: 10/09/18 13:32 The scribe's documentation has been prepared under my direction and personally reviewed by me in its entirety. I confirm that the note above accurately reflects all work, treatment, procedures, and medical decision making performed by me.
--- NOTE | 2018-10-09 23:52 | Operative Report ---
DATE OF OPERATION: 10/09/2018 NAME OF OPERATION: Laparoscopic appendectomy with lysis of adhesions. PREOPERATIVE DIAGNOSIS: Acute appendicitis. POSTOPERATIVE DIAGNOSIS: Acute appendicitis with chronic adhesions. STAFF SURGEON: Alex Parekh MD REFINING SUPERVISOR: Bertha Taylor. ANESTHESIA: General. DESCRIPTION OF PROCEDURE: The patient was brought into the operating room and placed on the operating table in supine position. Her abdomen was prepped and draped in usual fashion. Pneumatic stockings and orogastric tube were placed. My triage assistant helped with prepping, draping, removal of the appendix, and closure of the wounds. Initially, incision was made just above the umbilicus using 0.5% plain Marcaine to anesthetize the skin and subcutaneous tissue. The dissection was carried down to the fascia placing a Veress needle producing pneumoperitoneum. A 12 mm port was placed at this level and then under visualization, two 5 mm ports were placed, one suprapubically and one left lower quadrant. The appendix was identified, it was thickened and inflamed. There were chronic adhesions which had to be lysed. There was a questionable history of prior appendicitis. The base of the appendix was transected using the Endo KARRI stapler and then the mesoappendix transected and ligated using the Endo-KARRI in several loads. The appendix was placed in an Endobag and then the Endobag was removed through the 12 mm site. The right lower quadrant irrigated. Hemostasis was maintained. All ports were then removed. Fascia at the umbilicus closed using interrupted 0 Vicryl suture. Skin incisions closed using interrupted 5-0 Prolene suture as the patient did have an allergy to adhesives. Dressing was applied and patient transferred to recovery room in stable condition. I attest to the content of the Intraoperative Record and any orders documented therein. Any exception s are noted below.
[2018-10-10] MEDS: SODIUM CHLORIDE 0.9% 1000ML 1,000 ML IV SCH ×3 (00:08→17:19)
[2018-10-10] MEDS: ALPRAZolam 0.5 MG TABLET PO PRN ×2 (00:08→21:30)
[2018-10-10 05:57] LABS: Hematocrit (blood only) 35.6 % (37-47); Hemoglobin 11.6 g/dL (12.0-16.0); Immature Granulocytes # (auto) 0.01 K/uL (0.00-0.02); Immature Granulocytes % (auto) 0.1 %; Lymphocytes # (auto) 0.84 K/uL (1.2-3.4); Lymphocytes % (auto) 7.6 %; Mean Corpuscular Hemoglobin 29.9 pg (25-34); Mean Corpuscular Hgb Conc 32.6 g/dL (32-36); Mean Corpuscular Volume 91.8 fL (80-100); Mean Platelet Volume 9.5 fL (7.4-10.4); Monocytes # (auto) 0.37 K/uL (0.11-0.59); Monocytes % (auto) 3.4 %; Neutrophils % (auto) 88.9 %; Platelet Count 318 K/uL (130-400); RDW Coefficient of Variation 17.3 % (11.5-14.5); Red Blood Count 3.88 M/uL (4.2-5.4); White Blood Count 11.02 K/uL (4.8-10.8)
[2018-10-10 06:24] LABS: Albumin Level 3.2 gm/dl (3.4-5.0); BUN Creatinine Ratio 14.4 (10-20); Calcium 8.7 mg/dl (8.5-10.1); Creatinine Clr Calc Pharmacy 85.2 ml/min; Est GFR (African American) 95.4; Est GFR (Non-African American) 82.3; Potassium 3.7 mmol/L (3.5-5.1)
--- NOTE | 2018-10-10 06:24 | Surgery Progress Note ---
Date of Service October 10, 2018 Assessment & Plan (1) Appendicitis: s/p lap appendectomy- acute and chronic changes adhesions adv diet, monitor pain control, cont IV atbx walk in hallway Results & Data Vital Signs (Past 12 Hours) Vital Signs Temp Pulse Resp BP Pulse Ox Pulse Ox 10/10/18 02:48 36.8 C 91 H 18 134/85 95 10/09/18 23:45 95 10/09/18 23:30 36.8 C 94 H 18 136/87 95 10/09/18 19:55 36.5 C 90 14 133/84 95 10/09/18 18:55 36.7 C 89 16 124/82 97 PG Care Time/CCT Total # of Minutes Spent Total Time Spent with Patient: Total time spent is greater than 50% in coordination of care (as documented) at patient's floor/unit and/or counseling patient: (1) Appendicitis Appendicitis type: unspecified Qualified Code(s): K37 - Unspecified appendicitis
[2018-10-10 06:27] LABS: Albumin Globulin Ratio 0.8 (0.9-2); Bilirubin,Total 0.5 mg/dl (0.2-1); Globulin 3.8 gm/dl (2.5-4.0); Phosphorus 3.5 mg/dl (2.5-4.9)
--- NOTE | 2018-10-10 07:55 | Anesthesiology Progress Note ---
Date of Service October 10, 2018 Anesthesia Post Procedure Vital Signs Vital Signs: Temp Pulse Pulse Pulse Pulse Resp BP 10/10/18 07:31 36.7 C 83 18 10/10/18 02:48 36.8 C 91 H 18 10/09/18 23:45 10/09/18 23:30 36.8 C 94 H 18 10/09/18 19:55 36.5 C 90 14 10/09/18 18:55 36.7 C 89 16 10/09/18 17:55 36.4 C L 91 H 14 10/09/18 17:18 36.8 C 96 H 16 10/09/18 16:57 36.8 C 95 H 16 10/09/18 16:30 91 H 19 10/09/18 16:20 94 H 19 10/09/18 16:10 96 H 21 10/09/18 16:00 99 H 17 10/09/18 15:50 105 H 25 H 10/09/18 15:47 100 H 26 H 10/09/18 15:40 114 H 21 10/09/18 15:30 36.8 C 112 H 25 H 10/09/18 13:51 37 C 89 18 10/09/18 13:28 86 20 10/09/18 12:30 95 H 18 10/09/18 11:14 95 H 17 10/09/18 10:31 37.5 C 124 H 20 126/87 BP Pulse Ox Pulse Ox 10/10/18 07:31 129/83 98 10/10/18 02:48 134/85 95 10/09/18 23:45 95 10/09/18 23:30 136/87 95 10/09/18 19:55 133/84 95 10/09/18 18:55 124/82 97 10/09/18 17:55 115/76 96 10/09/18 17:18 113/76 96 10/09/18 16:57 115/77 93 10/09/18 16:30 119/78 93 10/09/18 16:20 122/80 92 10/09/18 16:10 124/86 93 10/09/18 16:00 110/59 L 91 10/09/18 15:50 151/91 H 96 10/09/18 15:47 96 10/09/18 15:40 152/113 H 95 10/09/18 15:30 150/101 H 94 10/09/18 13:51 141/97 H 97 10/09/18 13:28 143/91 H 98 10/09/18 12:30 123/82 96 10/09/18 11:14 126/95 93 10/09/18 10:31 96 Pain Intensity Abdomen: Pain Intensity: 3 Notes Mental Status: alert / awake / arousable and participated in evaluation Patient Amnestic to Procedure: Yes Nausea / Vomiting: adequately controlled Pain: adequately controlled Airway Patency, RR, SpO2: stable & adequate BP & HR: stable & adequate Hydration State: stable & adequate Anesthetic Complications: no major complications apparent
[2018-10-10] MEDS: PARoxetine HCl 20 MG TAB PO SCH (08:43)
[2018-10-10] MEDS ORDERED: FAMOTIDINE 20MG/5ML IV PUSH IV STA (11:43)
[2018-10-10] MEDS ORDERED: DiphenhydrAMINE HCL 50 MG/ML VIAL IV STA (11:48)
[2018-10-10] MEDS ORDERED: methylPREDNISolone 125 MG/2 ML VIAL IV STA (11:48)
[2018-10-10] MEDS ORDERED: ACETAMINOPHEN 325 MG TAB PO STA (11:48)
--- NOTE | 2018-10-10 12:12 | Hospitalist Progress Note ---
Date of Service October 10, 2018 Assessment & Plan (1) Allergic reaction: flushing in skin on cheeks, neck, chest no stridor, no wheezing, no difficulty breathing has rigors and chills as well possible reaction to Cefoxitin? give Solu Medrol 60mg IV, Benadryl 25mg IV, Pepcid IV and Tylenol reassess this afternoon again, no distress, no signs that this is anaphylactic reaction (2) Appendicitis: s/p appendectomy management per Dr. Parekh minimal pain in RLQ, only on movement tolerating diet on Cefoxitin, will place on hold due to possible allergic reaction asked RN to page surgery about holding abx or using alternative (3) GERD (gastroesophageal reflux disease): continue PPI (4) Breast cancer: continue Aromasin (5) Stridor: resolved, had some last evening after extubation in PACU treated with racemic epinephrine Subjective patient c/o some redness and flushing in her face and neck she feels fullness in her throat but no difficulty swallowing, no difficulty breathing started this morning she is getting Cefoxitin, unsure if she ever got this antibiotic prior to this admission she feels like she has chills and some rigors minimal RLQ pain, just when she moves tolerating liquids, did not want to try the eggs this morning reviewed labs, WBC 11k, BMP normal vitals all stable, breathing well on room air Review of Systems Review of Systems: All systems reviewed & are unremarkable except as noted in HPI & below Constitutional: + chills, + body aches and + problem reported (rigors); no fever, no sweats, no fatigue and no weakness Ear, Nose, Mouth, Throat: + problem reported (fullness in throat, swelling but no pain) Respiratory: no cough, no dyspnea and no dyspnea on exertion Cardiovascular: no chest pain and no edema Gastrointestinal: + abdominal pain (minimal in RLQ); no nausea, no vomiting, no constipation and no diarrhea/loose stools Integumentary: + erythema (face, neck, anterior chest, flushing) Physical Exam Constitutional: WD/WN, vitals as above Eyes: PERRL, conjunctivae normal, anicteric sclerae ENMT: external ear and nose normal, oropharynx normal Neck: normal visual inspection and trachea midline (no stridor on auscultation of neck); no neck crepitus Respiratory: normal respiratory effort, lungs clear to auscultation (no wheezing) Cardiovascular: RRR, no murmur, no edema Gastrointestinal (Abdomen): normal bowel sounds, soft, nontender, no hepatosplenomegaly Musculoskeletal: no cyanosis or clubbing, extremities motor strength 5/5 Skin: + skin tightening (mild swelling in cheeks and neck, no swelling of eyes) and + erythema (cheeks, neck, anterior chest) Neurologic: patellar DTR's 2+ bilat, sensation intact and PERRL, EOMI, accommodation nl, no face palsy, no dysarthria Psychiatric: A+Ox3, euthymic affect Lymphatic: no cervical or axillary lymphadenopathy Results & Data Vital Signs (Past 12 Hours) Vital Signs Temp Pulse Resp BP Pulse Ox 10/10/18 07:31 36.7 C 83 18 129/83 98 10/10/18 02:48 36.8 C 91 H 18 134/85 95 Laboratory Results Laboratory Results - last 24 hr 10/09/18 10/10/18 10/10/18 12:30 05:40 05:40 WBC 11.02 H RBC 3.88 L Hgb 11.6 L Hct 35.6 L MCV 91.8 MCH 29.9 MCHC 32.6 RDW Std Deviation 58.0 H RDW Coeff of Dipti 17.3 H Plt Count 318 MPV 9.5 Immature Gran % (Auto) 0.1 Neut % (Auto) 88.9 Lymph % (Auto) 7.6 [place] % (Auto) 3.4 Eos % (Auto) 0.0 Baso % (Auto) 0.0 Immature Gran # (Auto) 0.01 Neut # (Auto) 9.80 H Lymph # (Auto) 0.84 L [place] # (Auto) 0.37 Eos # (Auto) 0.00 Baso # (Auto) 0.00 Sodium 143 Potassium 3.7 Chloride 109 H Carbon Dioxide 27 Anion Gap 7.0 BUN 12 Creatinine 0.82 Est Cr Clr Drug Dosing 85.2 Est GFR ( Amer) 95.4 Est GFR (Non-Af Amer) 82.3 BUN/Creatinine Ratio 14.4 Glucose 104 H Calcium 8.7 Phosphorus 3.5 Total Bilirubin 0.5 AST 17 ALT 24 Alkaline Phosphatase 99 Total Protein 7.0 Albumin 3.2 L Globulin 3.8 Albumin/Globulin Ratio 0.8 L Urine Color Yellow Urine Appearance Clear Urine pH 7.5 Ur Specific [place] 1.022 Urine Protein Negative Urine Glucose (UA) Negative Urine Ketones Negative Urine Blood Negative Urine Nitrite Negative Urine Bilirubin Negative Urine Urobilinogen Negative Ur Leukocyte Esterase 1+ H Urine WBC (Auto) 1-5 Urine RBC (Auto) 0-4 U Hyaline Cast (Auto) 1-5 U Epithel Cells (Auto) 5-10 H Urine Bacteria (Auto) Negative Medications Administered Current Inpatient Medications Hydrocodone Bitart/Acetaminophen ([place] 5/325) 1 tab PO 3XDQ4 PRN; Protocol PRN Reason: Pain Stop: 10/23/18 16:56 Hydrocodone Bitart/Acetaminophen ([place] 5/325) 2 tab PO 3XDQ4 PRN; Protocol PRN Reason: Pain Stop: 10/23/18 16:56 Alprazolam (Xanax) 0.5 mg PO HS PRN PRN Reason: Insomnia Stop: 11/08/18 16:56 Last Admin: 10/10/18 00:08 Dose: 0.5 mg Documented by: Hydromorphone HCl (Dilaudid) 0.5 mg IV Q3HWA PRN; Protocol PRN Reason: Pain Stop: 10/23/18 16:56 Hydromorphone HCl (Dilaudid) 1 mg IV Q3HWA PRN; Protocol PRN Reason: Pain Stop: 10/23/18 16:56 Sodium Chloride (Nss 1000ml) 1,000 mls @ 50 mls/hr IV .Q20H AGNES Stop: 11/08/18 16:56 Last Admin: 10/10/18 07:52 Dose: Not Given Documented by: Cefoxitin Sodium 1,000 mg/ (Dextrose) 60 mls @ 100 mls/hr IV Q6H AGNES Stop: 10/19/18 17:59 Last Infusion: 10/10/18 07:52 Dose: Infused Documented by: Promethazine HCl 12.5 mg/ (Sodium Chloride) 50.5 mls @ 204 mls/hr IV Q6H PRN PRN Reason: Nausea And Vomiting Stop: 11/08/18 16:56 Promethazine HCl 25 mg/ Sodium (Chloride) 51 mls @ 204 mls/hr IV Q6H PRN PRN Reason: Nausea And Vomiting Stop: 11/08/18 16:56 Famotidine 20 mg/ Syringe 5 mls @ 2.5 mls/min IV ONE ONE Stop: 10/10/18 12:16 Methylprednisolone 60 mg/ (Syringe) 0.96 mls @ 1.5 mls/min IV ONE ONE Stop: 10/10/18 12:16 Ibuprofen (Motrin) 600 mg PO Q6H PRN PRN Reason: Pain Stop: 11/08/18 16:56 Ondansetron HCl (Zofran) 4 mg IV 4XDQ4H PRN PRN Reason: Nausea Stop: 11/08/18 16:56 Paroxetine HCl (Paxil) 20 mg PO DAILY AGNES Stop: 11/09/18 08:59 Last Admin: 10/10/18 08:43 Dose: 20 mg Documented by: PG Care Time/CCT Total # of Minutes Spent Total Time Spent with Patient: Total time spent is greater than 50% in coordination of care (as documented) at patient's floor/unit and/or counseling patient: (1) Appendicitis Appendicitis type: unspecified Qualified Code(s): K37 - Unspecified appendicitis
[2018-10-10] MEDS ORDERED: FAMOTIDINE 20 MG in SYRINGE 3 ML IV ONE (12:15)
[2018-10-10] MEDS ORDERED: methylPREDNISolone 60 MG in SYRINGE 0 ML IV ONE (12:15)
[2018-10-10] MEDS: AMOXICILLIN/CLAVULANATE 875 MG TAB PO SCH (16:17)
[2018-10-10] MEDS: EXEMESTANE PO SCH (18:41)
[2018-10-10] MEDS: HYDROXYCHLOROQUINE SULFATE 200 MG TAB PO SCH (18:41)
[2018-10-10] MEDS ORDERED: CALCIUM CARBONATE 500 MG CHEWABLE TAB PO ONE ×2 (20:45)
[2018-10-10] MEDS ORDERED: FAMOTIDINE 20 MG TAB PO ONE (23:50)
[2018-10-11] MEDS: HYDROmorphone INJ 0.5 MG/0.5 ML SYR IV PRN ×2 (01:19→04:34)
--- NOTE | 2018-10-11 07:19 | Discharge Summary ---
PRINCIPAL DIAGNOSIS: Acute appendicitis. PROCEDURE: The patient underwent laparoscopic appendectomy. HISTORY OF PRESENT ILLNESS: The patient is a 53-year-old female presenting to the Emergency Room with abdominal pain and nausea with findings on CAT scan of an abnormal appendix. HOSPITAL COURSE: She was taken to the operating room on 10/09/2018 where she underwent laparoscopic appendectomy showing a thickened appendix with chronic severe adhesions, all consistent with acute and chronic appendicitis. She has done well from her operation. She did have a mild reaction we think to Mefoxin antibiotic with some flushing in the face. She also had some reflux, but is felt stable for discharge home today to be followed in the surgical clinic within 1-2 weeks.
[2018-10-11] MEDS: PARoxetine HCl 20 MG TAB PO SCH (08:47)
[2018-10-11] MEDS: HYDROXYCHLOROQUINE SULFATE 200 MG TAB PO SCH (08:47)
[2018-10-11] MEDS: EXEMESTANE PO SCH (08:47)
[2018-10-11] MEDS: AMOXICILLIN/CLAVULANATE 875 MG TAB PO SCH (08:47)
== END 2018-10-11 09:55 | disposition home or self-care (01) | DRG 343 ==
LOC: ED 10:25 → ASU 13:32 → 3N 13:32